=== PATIENT | male | born 1980 | race Caucasian/White ===

== ENCOUNTER 2017-11-08 20:28 | Emergency (ER) | payer MEDICAID, OTHER ==
[2017-11-08] MEDS ORDERED: NS 1,000 ML IV ONE (21:24)
[2017-11-08] MEDS ORDERED: LORazepam 2 MG/ML INJ IVP ONE (21:24)
[2017-11-08] MEDS ORDERED: ONDANSETRON 4 MG/2 ML VIAL IVP ONE (21:24)
--- NOTE | 2017-11-08 21:28 | EDPHY ---
H & P Stated Complaint: Detoxing from ketamine - Personal History Current Tetanus/Diphtheria Vaccine: Yes Current Tetanus Diphtheria and Acellular Pertussis (TDAP): Yes - Medical/Surgical History Hx Asthma: No Hx Chronic Respiratory Disease: No Hx Diabetes: No Hx Cardiac Disease: No Hx Renal Disease: No Hx Cirrhosis: No Hx Alcoholism: No Hx HIV/AIDS: No Hx Splenectomy or Spleen Trauma: No Other PMH: amp below the right knee - Social History Smoking Status: Current every day smoker Time Seen by Provider: 11/08/17 21:07 HPI/ROS: CHIEF COMPLAINT: "I'm detoxing from ketamine" HISTORY OF PRESENT ILLNESS: 37-year-old male history of chronic right lower extremity and chronic back pain pain, 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 He is complaining of epigastric pain, nausea, anxiety. REVIEW OF SYSTEMS: 10 systems reviewed and negative with the exception of the elements mentioned in the history of present illness PAST MEDICAL & SURGICAL HISTORY: No pertinent medical or surgical history SOCIAL HISTORY: Positive for polysubstance abuse , positive PHYSICAL EXAM (Prior to examination, patient consented to physical exam, hands were washed and my usual and customary physical exam procedures followed) 1) GENERAL: Well-developed, well-nourished, alert and oriented. Appears to be in no acute distress. 2) HEAD: Normocephalic, atraumatic 3) HEENT: Pupils equal, round, reactive to light bilaterally. Sclera anicteric. Nasopharynx, oropharynx, clear, no lesions. Moist Mucous membranes. 4) NECK: Full range of motion, no meningeal signs. 5) LUNGS: Clear auscultation bilaterally, no wheezes, no rhonchi, no retractions. 6) HEART: Regular rate and rhythm, no murmur, no heave, no gallop. 7) ABDOMEN: No guarding, mild epigastric discomfort, no focal tenderness, negative McBurney's, negative Dee's, negative Rovsing's, negative peritoneal sign, 8) MUSCULOSKELETAL: Moving all extremities, no focal areas of tenderness, no obvious trauma. No peripheral edema or discoloration. 9) BACK: No CVA tenderness, no midline vertebral tenderness, no fluctuance, no step-off, no obvious trauma, no visual or palpable abnormality. 10) SKIN: No rash, no petechiae. 11) Psychiatric: Patient is oriented X 3, there is no agitation. DIFFERENTIAL DIAGNOSIS: In no particular order including but not limited to polysubstance withdrawal, alcohol withdrawal, opiate withdrawal, ketamine withdrawal (Graciela Hernandez) Constitutional: Initial Vital Signs Temperature (C) 36.9 C 11/08/17 20:28 Heart Rate 76 11/08/17 20:28 Respiratory Rate 16 11/08/17 20:28 Blood Pressure 145/93 H 11/08/17 20:28 O2 Sat (%) 99 11/08/17 20:28 O2 Delivery Mode Room Air Allergies/Adverse Reactions: tramadol Allergy (Verified 11/08/17 20:34) Home Medications: Medication Instructions Recorded Gabapentin 11/08/17 LORazepam [Ativan 1 mg (RX)] 1 mg PO Q6 PRN #7 tab 11/08/17 Ondansetron Odt [Zofran Odt] 4 mg PO Q4PRN PRN #7 tab 11/08/17 VYVANSE 11/08/17 Medical Decision Making ED Course/Re-evaluation: 10:50 p.m.: Re-evaluation. Patient has been given Ativan, Zofran, IV hydration by feeling improvement in the ER. Heart rate is in the 90s. He denies suicidal homicidal ideation. I think the patient can be discharged. Today is Thursday of the weekend. I emphasized with difficulty getting into rehabilitation center. I have highly recommend he seek assistance for long -term sobriety. At this time I do not think he meets criteria for an M1 hold. He is medically cleared at this time. His girlfriend is here. I will discharge home with Zofran and a small prescription for Ativan which I recommend his girlfriend hold inspect. He feels comfortable with this plan. All questions and concerns by myself. (Graciela Hernandez) Other Provider: The patient was evaluated and managed by the Physician Digital Media Analyst. I discussed the patient's presentation and course with the midlevel provider with them and agree with the evaluation. My co-signature indicates that I have reviewed this chart and I agree with the findings and plan of care as documented. I am the secondary supervising physician. (Claire Durham) - Data Points Laboratory Results: Laboratory Results 11/08/17 21:27 11/08/17 21:47 Medications Given: Discontinued Medications Sodium Chloride (Ns) 1,000 mls @ 0 mls/hr IV ONCE ONE PRN Reason: Wide Open Stop: 11/08/17 21:25 Last Admin: 11/08/17 21:34 Dose: 1,000 mls Lorazepam (Ativan Injection) 1 mg IVP EDNOW ONE Stop: 11/08/17 21:25 Last Admin: 11/08/17 21:36 Dose: 1 mg Lorazepam (Ativan 1 Mg Prepack#4) 1 btl TAKEHOME EDNOW ONE Stop: 11/08/17 23:17 Last Admin: 11/08/17 23:22 Dose: 1 btl Ondansetron HCl (Zofran) 4 mg IVP EDNOW ONE Stop: 11/08/17 21:25 Last Admin: 11/08/17 21:35 Dose: 4 mg Ondansetron HCl (Zofran Odt 4 Mg Prepack#2) 1 btl TAKEHOME EDNOW ONE Stop: 11/08/17 23:17 Last Admin: 11/08/17 23:22 Dose: 1 btl Departure - Departure Disposition: Home, Routine, Self-Care Clinical Impression: Polysubstance abuse Condition: Good Instructions: Lorazepam (By mouth), Ondansetron (By mouth), Polysubstance Abuse (ED) Additional Instructions: Return to the emergency department if you develop hallucinations, thoughts of hurting your self or others, nausea, vomiting, blood pain or any other symptoms that concern you. Referrals: [facility] [Outside] - 1-2 days without fail [facility] ([place],. [Clinic] - 1-2 days without fail Prescriptions: LORazepam [Ativan 1 mg (RX)] 1 mg PO Q6 PRN #7 tab PRN Reason: Anxiety Ondansetron Odt [Zofran Odt] 4 mg PO Q4PRN PRN #7 tab PRN Reason: Nausea
[2017-11-08 21:37] LABS: PLATELET COUNT 254 10^3/uL (150-400)
[2017-11-08 22:31] LABS: CREATINE KINASE 925 IU/L (0-224)
[2017-11-08 23:11] VITALS: BP 117/93
[2017-11-08] MEDS ORDERED: ONDANSETRON 4MG PREPACK#2 BTL TAKEHOME ONE (23:16)
[2017-11-08] MEDS ORDERED: LORAZEPAM 1 MG PREPACK#4 BTL TAKEHOME ONE (23:16)
== END 2017-11-08 23:24 | disposition home or self-care (01) ==
DX: F19.10 Other psychoactive substance abuse, uncomplicated (principal)
CPT/HCPCS: 96374; G0480; J2060; J2405